=== PATIENT | male | born 1965 | race Caucasian/White ===

== ENCOUNTER → 2024-11-15 | Outpatient (CLI) | payer MEDICAID, SELFPAY ==
--- NOTE | 2024-11-15 11:47 | RAD_ITS ---
PROCEDURE: LUMBAR SPINE 2 OR 3 VIEWS 11/15/2024. REASON FOR EXAM: LUMBAR RADICULOPATHY TECHNIQUE: Four (4) view(s) of the lumbar spine. COMPARISON: No relevant prior. FINDINGS: Vertebrae: Normal in height. Mild multilevel spondylosis. Discs: Unremarkable. Alignment: No spondylolysis or spondylolisthesis. Mild scoliosis. Sacroiliac joints: Unremarkable. Other: No other significant findings. RAD/Lumbar Spine 2 or 3 Views IMPRESSION: Mild scoliosis. No acute findings involving the lumbosacral spine. Reading Location: [facility]
== END | disposition home or self-care (01) ==
LOC: RAD 11:47
PROVIDERS: PCP Physician Assistant; Referring Provider Anesthesiology; Visit Provider Anesthesiology
DX: M54.16 Radiculopathy, lumbar region (principal)
CPT/HCPCS: 72100

== ENCOUNTER 2025-01-19 10:50 | Emergency (ER) | payer MEDICAID, SELFPAY ==
[2025-01-19 10:51] VITALS: BP 141/103; PULSE 77; RESP 16; TEMP 36.7; O2SAT 99; BMI 31.2
--- NOTE | 2025-01-19 11:53 | RAD_ITS ---
PROCEDURE: CHEST PA AND LATERAL 01/19/2025 REASON FOR EXAM: CHEST PAIN TECHNIQUE: CHEST PA AND LATERAL COMPARISON: None FINDINGS: Heart size and mediastinal configuration are within normal limits. There is no focal infiltrate or consolidation. There is no pneumothorax or effusion. There is no acute bony abnormality. Aortic calcifications are visible. RAD/Chest PA and Lateral IMPRESSION: No acute process is identified in the chest. Reading Location: [facility]
[2025-01-19 12:06] LABS: Absolute Lymphocyte Count 2.04 X10^3/uL (0.83-4.51); Absolute Neutrophil Count 4.7 X10^3/uL (2.0-7.7); Basophil# 0.04 X10^3/uL; Basophil% 0.5 % (0-1); Eosinophil# 0.09 X10^3/uL; Eosinophils% 1.2 % (0-5); Hematocrit 47.5 % (40-54); Hemoglobin 16.1 g/dL (13.0-16.5); Lymphocyte # 2.04 X10^3/ul (0.83-4.51); Lymphocyte % 27.5 % (19-41); Mean Corp Hgb Conc 33.9 g/dL (32-36); Mean Corpuscular Hgb 29.5 pg (27.0-32.0); Mean Corpuscular Volume 87.2 fL (80-94); Mean Platelet Vol. 9.2 fl (6.2-12.0); Monocyte# 0.51 X10^3/uL; Monocyte% 6.9 % (0-10); NRBC Flagged by Analyzer 0 % (0-5); Neutrophil # 4.71 X10^3/uL (2.7-7.7); Neutrophil % 63.5 % (47-70); Platelet Count 291 K/mm3 (150-450); RBC Distribution Width CV 12.5 % (11.6-14.6); RBC Distribution Width SD 39.7 fl (35.1-43.9); Red Blood Count 5.45 M/mm3 (4.6-6.2); White Blood Count 7.4 K/mm3 (4.4-11.0)
--- NOTE | 2025-01-19 12:22 | ED.VIS.CHEST ---
HPI History of Present Illness Chief Complaint: Chest Pain Narrative Narrative: Patient is a 59-year-old male with past medical history of GERD, hypertension, chronic back pain who presents to the emergency department chief complaint chest pain. He states that he has been having chest pain for months and states that this is constant he believes that this is coming from his T4-T5 disc that is no longer there he states. He states that he was following up with his doctor today and was telling him about his symptoms they are concerned that this may be his heart therefore they sent him here to be evaluated. Patient states that his pain does not get worse with exertion. He states that he is never had a stress test and states that he is scared to do so as he fears that he will be told that he needs surgery. Patient notes that he is anxious at this point time as he needs to get back to his mother who is not well. [facility] Medical History GERD (gastroesophageal reflux disease) Hypertension Home Medications ?Medication ?Instructions ?Recorded ?Last Taken ?Type atorvastatin 10 mg tablet 10 mg PO QHS 01/19/25 01/18/25 History gemfibrozil 600 mg tablet 600 mg PO QHS 01/19/25 01/18/25 History lisinopril 10 mg tablet 10 mg PO QHS 01/19/25 01/18/25 History pantoprazole 20 mg tablet,delayed 20 mg PO DAILY 01/19/25 01/19/25 History release Allergy/AdvReac Type Severity Reaction Status Date / Time No Known Allergies Allergy Verified 01/19/25 10:52 Social History Smoking Status: Former smoker ROS ROS ED ROS Narrative Constitutional: Denies fevers, chills, headaches, lightness, dizziness Eyes: Denies changes double vision blurry vision Cardiovascular: Complains of chest pain as noted above denies palpitations Respiratory: Denies coughing wheezing shortness of breath Abdomen: Denies abdominal pain nausea vomit diarrhea : Denies urinary symptoms Neurological: Denies numbness, wheeze, tingling Musculoskeletal: Complains of chronic back pain as noted above nothing new Skin: Denies any rashes or lesions EXAM Physical Exam Narrative Exam Narrative: General: Patient was lying in bed rest comfortably did not appear to be acute distress Head: Atraumatic, normocephalic Eyes: PERRL bilaterally, EOMI bladder, no conjunctival injection noted Neck: Soft, supple, trachea midline Cardiovascular: Regular rate and rhythm no murmurs gallops rubs noted Respiratory: Clear to auscultation bilaterally Abdomen: Soft, nondistended, nontender to palpation Extremities: +5/5 strength noted in the bilateral upper and lower extremity, radial pulses +2/4 in both extremities, no pedal edema exam Neurological: Patient follow commands knew that he was at [facility] the year is 2024 Skin: Warm, dry, tact no rashes or lesions noted Const Vital Signs: 01/19/25 10:51 01/19/25 11:23 01/19/25 12:41 Temperature 98.1 F Temperature Source Oral Pulse Rate 77 Respiratory Rate 16 Respiratory Effort Normal Blood Pressure 141/103 H Blood Pressure Mean 115 Pulse Ox 99 Oxygen Delivery Method Room Air Room Air 01/19/25 13:01 Temperature Temperature Source Pulse Rate 75 Respiratory Rate 11 L Respiratory Effort Blood Pressure 136/93 H Blood Pressure Mean 107 Pulse Ox 97 Oxygen Delivery Method Room Air MDM MDM MDM Narrative Medical decision making narrative: Patient is a 59-year-old male who presented to the emergency department with a chief complaint of chest pain. On the differential diagnosis includes but not limited to ACS, stable angina, electrolyte abnormality, costochondritis, musculoskeletal strain. Once workup is obtained reviewed he will be reevaluated. Patient CBC reviewed showed no leukocytosis white blood count normal somewhat 4, hemoglobin stable at 16.1, platelet count 291. Patient sodium is normal 130, potassium normal 4.3, creatinine 0.94. Patient's troponin was less than 6 with a delta troponin obtained less than 6, EKG reviewed showed sinus rhythm with a rate of 73 bpm. Patient chest x-ray reviewed by myself and by radiology which showed no acute cardiopulmonary processes. Discussed results with the patient he would like to go home at this point time. He will be referred to a primary care physician per his request in town here as well as a lead furnace operator. He is advised to obtain a stress test in the outpatient setting and return with worsening symptoms or concerns. At this point time do have low suspicion as his pain has been constant for a significant amount of time now. All question concerns answered discharged home in stable condition Lab Data Labs: Laboratory Results - last 24 hr 06/25/25 06/25/25 11:20 13:14 WBC 7.4 RBC 5.45 Hgb 16.1 Hct 47.5 MCV 87.2 MCH 29.5 MCHC 33.9 RDW Std Deviation 39.7 RDW Coeff of Mitch 12.5 Plt Count 291 MPV 9.2 Immature Gran % (Auto) 0.400 Neut % (Auto) 63.5 Lymph % (Auto) 27.5 Steele % (Auto) 6.9 Eos % (Auto) 1.2 Baso % (Auto) 0.5 Absolute Neuts (auto) 4.7 Absolute Lymphs (auto) 2.04 Nucleated RBC % 0 Sodium 138 Potassium 4.3 Chloride 103 Carbon Dioxide 22.5 Anion Gap 12 BUN 11 Creatinine 0.94 Estim Creat Clear Calc 102.73 Est GFR (MDRD) Non-Af 94 BUN/Creatinine Ratio 12.0 Glucose 95 Calcium 9.6 Troponin T High Sens < 6 Troponin T Hi Sens 2 Hr < 6 Radiography Diagnostic Testing: Clinical Impression(s) from Imaging Studies Chest X-Ray 01/19/25 11:53 IMPRESSION: No acute process is identified in the chest. Reading [facility] Dis[facility] Triage Chief Complaint: Chest Pain ED Provider: Hermelindo Emmanuel Dx/Rx/DC Orders Clinical Impression: Chest pain Prescriptions: No Action atorvastatin 10 mg tablet 10 mg PO QHS pantoprazole 20 mg tablet,delayed release (DR/EC) 20 mg PO DAILY gemfibrozil 600 mg tablet 600 mg PO QHS lisinopril 10 mg tablet 10 mg PO QHS Primary Care Provider: Cruzito Steven Referrals: Cruzito Steven PA-C [Primary Care Provider] - Jesus Atwood MD [Med Staff - Grinding Room Inspector] - Adair Archibald MD [Med Staff - Active Staff] - Activity Restrictions/Additional Instructions: Return with worsening symptoms or any concerns. Follow-up with the doctor you referred to Dr. Atwood as well as the lead furnace operator Dr. Archibald. Your workup here in the Emergency Department did not show any acute findings today your chest x-ray did not show any acute findings either. Print Language: Icelandic Disposition Disposition: Home, Self Care
[2025-01-19 12:45] LABS: Anion Gap 12 (5-15); BUN 11 mg/dL (4-19); Calcium,Total 9.6 mg/dL (7.6-11.0); Carbon Dioxide 22.5 mmol/L (21.0-32.0); Chloride 103 mmol/L (98-108); Creatinine, Serum 0.94 mg/dL (0.70-1.20); EST Glomerular Filtration Rate 94 (>60); Estimated Creatinine Clearance 102.73 ml/min (50-250); Glucose 95 mg/dL (70-99); Potassium 4.3 mmol/L (3.3-5.1); Sodium Level 138 mmol/L (133-145); Troponin T High Sensitivity < 6 ng/L (<=22)
[2025-01-19] MEDS: 0.9% Normal Saline (1000mL) 1,000 ML 999 ML IV (12:57)
[2025-01-19 13:01] VITALS: BP 136/93; PULSE 75; RESP 11; O2SAT 97
[2025-01-19 14:16] LABS: Troponin T High Sens 2 HR < 6 ng/L (<=22)
[2025-01-19 15:02] VITALS: BP 134/72; PULSE 78; RESP 16; TEMP 36.6; O2SAT 97
== END 2025-01-19 15:04 | disposition home or self-care (01) ==
PROVIDERS: Emergency Provider Emergency Medicine; PCP Physician Assistant; Visit Provider Emergency Medicine
DX: R07.9 Chest pain, unspecified (principal); I10 Essential (primary) hypertension; M54.12 Radiculopathy, cervical region; M54.14 Radiculopathy, thoracic region; Z79.899 Other long term (current) drug therapy; Z87.891 Personal history of nicotine dependence
CPT/HCPCS: 71046; 72050; 72072; 80048; 84484; 85025; 93005; 96360; 99284; A4216

== ENCOUNTER → 2025-01-19 | Outpatient (CLI) | payer MEDICAID, SELFPAY ==
--- NOTE | 2025-01-19 10:22 | RAD_ITS ---
PROCEDURE: CERV SPINE 4 OR 5 VIEWS 01/19/2025 REASON FOR EXAM: RADICULOPATHY TECHNIQUE: CERV SPINE 4 OR 5 VIEWS COMPARISON: None. FINDINGS: Grade 1 anterolisthesis C5 on C6 measuring 3.4 mm. Straightening of the cervical lordosis, probably muscular spasm and pain. There are diffuse spondylotic changes. Findings are demonstrated to by diffuse disc space narrowing, osteophyte formation and degenerative endplate sclerosis. There is diffuse facet joint arthropathy with secondary bilateral neural foramina narrowing. No fracture or dislocation is seen. No aggressive lytic or blastic bony lesion is noted. RAD/Cerv Spine 4 or 5 Views IMPRESSION: Diffuse spondylosis. Reading Location: [facility]
--- NOTE | 2025-01-19 10:22 | RAD_ITS ---
PROCEDURE: THORACIC SPINE 3 VIEWS 01/19/2025 REASON FOR EXAM: RADICULOPATHY TECHNIQUE: THORACIC SPINE 3 VIEWS COMPARISON: None. FINDINGS: Mild S shaped scoliosis. There are diffuse spondylotic changes. Findings are demonstrated to by diffuse disc space narrowing, osteophyte formation and degenerative endplate sclerosis. There is diffuse facet joint arthropathy with secondary bilateral neural foramina narrowing. No fracture or dislocation is seen. No aggressive lytic or blastic bony lesion is noted. RAD/Thoracic Spine 3 Views IMPRESSION: Mild S shaped scoliosis. Diffuse spondylosis. Reading Location: [facility]
== END | disposition home or self-care (01) ==
LOC: RAD 10:21
PROVIDERS: PCP Physician Assistant; Referring Provider Anesthesiology; Visit Provider Anesthesiology
DX: M54.12 Radiculopathy, cervical region (principal); M54.14 Radiculopathy, thoracic region
CPT/HCPCS: 72050; 72072

== ENCOUNTER → 2025-03-11 | Outpatient (CLI) | payer MEDICAID, SELFPAY ==
--- NOTE | 2025-03-11 13:51 | MRI_ITS ---
PROCEDURE: SPINE LUMBAR (ROUTINE) 03/11/2025 REASON FOR EXAM: SPONDYLOSIS, RADICULOPATHY TECHNIQUE: SPINE LUMBAR (ROUTINE) COMPARISON: March 17, 2025 FINDINGS: Vertebral body heights are within normal limits. Negative for acute fracture or marrow replacement. Mild dextroscoliosis. Conus medullaris is intact and terminates at T12-L1. No paraspinal mass. L1-2: Mild posterior disc bulge. Mild bilateral facet arthrosis. No significant spinal stenosis or foraminal narrowing. L2-3: Mild posterior disc bulge. Mild bilateral facet arthrosis and ligamentum flavum hypertrophy. Mild spinal stenosis. Mild left foraminal narrowing. L3-4: Posterior disc bulge with superimposed large central disc extrusion measuring 9 x 14 mm (AP and TV dimensions) demonstrating 7 mm of cranial migration. Mild bilateral facet arthrosis and ligamentum flavum hypertrophy. Severe spinal stenosis. Mild right and mild/moderate left foraminal narrowing. L4-5: Mild posterior disc bulge eccentric to the left. Mild bilateral facet arthrosis and ligamentum flavum hypertrophy. No significant spinal stenosis. Moderate right and mild left foraminal narrowing. L5-S1: Mild posterior disc bulge. Mild bilateral facet arthrosis. No significant spinal stenosis or foraminal narrowing. MRI/Spine Lumbar (Routine) IMPRESSION: 1. Large central disc extrusion at L3-4 resulting in severe spinal stenosis. 2. Mild spinal stenosis at L2-3. 3. [id number] multilevel foraminal narrowing, greatest on the right at L4 -5. Reading Location: [facility]
--- NOTE | 2025-03-11 13:51 | MRI_ITS ---
PROCEDURE: SPINE THORACIC (ROUTINE) 03/11/2025 REASON FOR EXAM: RADICULOPATHY, SPONDYLOSIS TECHNIQUE: SPINE THORACIC (ROUTINE) Multiplanar and multisequence images were obtained. COMPARISON: January 19, 2025 FINDINGS: Vertebral body heights are within normal limits. Negative for acute fracture or suspicious marrow replacement. A few multilevel Schmorl's nodes. Vertebral body hemangioma at T3. Partial ankylosis of T3-4. Alignment is intact. Spinal cord is of normal caliber, contour and signal intensity. Minimal posterior disc bulges at T9-10, T10-11, T11-12 and T12-L1, however there is no significant spinal stenosis. Mild multilevel facet arthrosis without significant foraminal narrowing. No paraspinal mass. Probable left renal cyst measuring up to 4 cm. MRI/Spine Thoracic (Routine) IMPRESSION: 1. No significant spinal stenosis or foraminal narrowing. 2. Chronic/incidental findings as above. 3. Probable left renal cyst. Recommend confirmation with ultrasound. Reading Location: [facility]
== END | disposition home or self-care (01) ==
LOC: MRI 13:44
PROVIDERS: PCP Physician Assistant; Referring Provider Anesthesiology; Visit Provider Anesthesiology
DX: M47.816 Spondylosis without myelopathy or radiculopathy, lumbar region (principal); M54.14 Radiculopathy, thoracic region
CPT/HCPCS: 72146; 72148

== ENCOUNTER → 2025-03-29 | Outpatient (CLI) | payer MEDICAID, SELFPAY ==
--- NOTE | 2025-03-29 12:59 | US_ITS ---
PROCEDURE: KIDNEY AND BLADDER 03/29/2025 REASON FOR EXAM: LUMBAGO WITH SCIATICA, LEFT SIDE TECHNIQUE: Procedure Code: USKI Modality: US Procedure: KIDNEY AND BLADDER COMPARISON: none FINDINGS: Right kidney measures 11.2 Cm and left kidney measures 11.9 Cm. Normal echotexture of bilateral kidneys. 3.6 x 3.8 x 3.5 cm midpole cyst within the left kidney. No hydronephrosis. No renal stones. Urinary bladder is unremarkable. US/Kidney and Bladder IMPRESSION: No hydronephrosis. 3.6 x 3.8 x 3.5 cm midpole cyst within the left kidney. Reading Location: [facility]
== END | disposition home or self-care (01) ==
LOC: US 12:47
PROVIDERS: PCP Physician Assistant; Referring Provider Physician Assistant; Visit Provider Physician Assistant
DX: M54.41 Lumbago with sciatica, right side (principal); M54.42 Lumbago with sciatica, left side
CPT/HCPCS: 76770